=== PATIENT | female | born 1965 | race Two or more races ===

== ENCOUNTER 2024-06-17 04:10 | Day surgery (SDC) | payer OTHER ==
[2024-06-17] MEDS ORDERED: oxyCODONE HCL 5 MG TABLET PO PRN ×4 (12:15→12:41)
[2024-06-17] MEDS ORDERED: ONDANSETRON 4 MG/2 ML VIAL IVPUSH PRN ×3 (12:15→12:41)
[2024-06-17] MEDS ORDERED: metroNIDAZOLE 0.75% VAGINAL GEL 70 GM TUBE ONE (12:26)
[2024-06-17] MEDS ORDERED: MIDAZOLAM HCL 2 MG/2 ML SINGLE DOSE VIAL ONE (12:28)
[2024-06-17] MEDS ORDERED: ePHEDrine SULFATE 50 MG/1 ML AMPULE ONE (12:28)
[2024-06-17] MEDS ORDERED: PROPOFOL 20 ML ONE (12:28)
[2024-06-17] MEDS ORDERED: SUGAMMADEX SODIUM 200 MG/2 ML VIAL ONE (12:28)
[2024-06-17] MEDS ORDERED: ROCURONIUM BROMIDE 50 MG/5 ML SYRINGE ONE (12:28)
[2024-06-17] MEDS ORDERED: HYDROmorphone HCl 2 MG/ML VIAL ONE (12:28)
[2024-06-17] MEDS ORDERED: LIDOCAINE HCL 2% 100 MG/5 ML DISP.SYRIN ONE (12:32)
[2024-06-17] MEDS ORDERED: DEXAMETHASONE SOD PHOSPHATE 4 MG/1 ML VIAL ONE (12:32)
[2024-06-17] MEDS ORDERED: ceFAZolin SODIUM 1 GM VIAL ONE (12:32)
[2024-06-17] MEDS ORDERED: SEVOFLURANE 250 ML BTL ONE (12:33)
[2024-06-17] MEDS ORDERED: BISACODYL 5 MG TABLET.DR (FP) PO PRN (12:41)
[2024-06-17] MEDS ORDERED: KETOROLAC TROMETHAMINE 30 MG/1 ML VIAL IVPUSH PRN (12:41)
[2024-06-17] MEDS ORDERED: SIMETHICONE 80 MG TAB.CHEW (FP) PO PRN (12:41)
[2024-06-17] MEDS ORDERED: ACETAMINOPHEN 1000 MG/100 ML BAG IVPB PRN (12:41)
[2024-06-17] MEDS ORDERED: TIRZEPATIDE 5 MG/0.5 ML SQ SCH (12:45)
[2024-06-17] MEDS ORDERED: [UNRECOGNIZED DRUG - OTHER] SQ SCH (12:45)
[2024-06-17] MEDS: ceFAZolin SODIUM 1 GM VIAL IVPB ONE (12:59)
[2024-06-17] MEDS ORDERED: TRANEXAMIC ACID 1000 MG/10 ML VIAL ONE (13:00)
[2024-06-17] MEDS: SODIUM CHLORIDE 1,000 ML IV SCH (16:41)
[2024-06-17] MEDS ORDERED: CEFAZOLIN 1 GM/D5W 1 GM/50 ML BAG IVPB SCH (18:00)
[2024-06-17] MEDS: DOCUSATE SODIUM 100 MG CAPSULE (FP) PO PRN (19:57)
[2024-06-17] MEDS: IBUPROFEN 800 MG/8 ML IJ IVPB PRN (19:57)
[2024-06-17] MEDS: CEFAZOLIN 1 GM/D5W 1 GM/50 ML BAG IVPB SCH (21:50)
[2024-06-17] MEDS ORDERED: PATIENT'S OWN MEDICATION (NON-FORMULARY) (Metaxalone [Skelaxin] 800 MG Tablet) PO SCH (22:00)
[2024-06-17 22:37] VITALS: RESP 18
[2024-06-18] MEDS: LEVOTHYROXINE NA 25 MCG TABLET (FP) PO SCH (06:17)
[2024-06-18] MEDS: GLIMEPIRIDE 4 MG TABLET PO SCH (06:40)
[2024-06-18 09:16] LABS: HEMATOCRIT 30.6 % (32.4-45.2); HEMOGLOBIN 9.8 GM/dL (10.7-15.3); MCH 26.7 pg (25.7-33.7); MCHC 32.1 g/dl (32.0-36.0); MEAN CELL VOLUME 83.2 fl (80-96); MEAN PLT VOLUME 10.1 fl (7.5-11.1); PLATELET COUNT 246 10^3/uL (134-434); RBC 3.68 M/mm3 (3.60-5.2); RDW 16.2 % (11.6-15.6); WHITE BLOOD COUNT 12.2 K/mm3 (4.0-10.0)
[2024-06-18] MEDS: LORATADINE 10 MG TABLET PO SCH (09:25)
[2024-06-18] MEDS: MULTIVITAMINS (DAILY MVI) TABLET (FP) PO SCH (09:25)
[2024-06-18] MEDS: PANTOPRAZOLE 20 MG TABLET PO SCH (09:25)
[2024-06-18 09:37] VITALS: BP 98/52; PULSE 73; TEMP 98.2
[2024-06-18] MEDS ORDERED: PATIENT'S OWN MEDICATION (NON-FORMULARY) (Dapagliflozin Propanediol [Farxiga] 5 MG Tablet) PO SCH (10:00)
[2024-06-18] MEDS ORDERED: IBUPROFEN 600 MG TABLET (FP) PO PRN (12:41)
== END 2024-06-18 10:10 | disposition home or self-care (01) ==
LOC: JASUSAT 04:10 → J3W 18:10 → JASUSAT 06-18 10:10
PROVIDERS: ATTEND Obstetrics & Gynecology
PROC: 0UT97ZZ Resection of Uterus, Via Natural or Artificial Opening (ICD-10-PCS; 2024-06-17)
PROC: 0UT57ZZ Resection of Right Fallopian Tube, Via Natural or Artificial Opening (ICD-10-PCS; 2024-06-17)
PROC: 0JQC0ZZ Repair Pelvic Region Subcutaneous Tissue and Fascia, Open Approach (ICD-10-PCS; principal; 2024-06-17 11:00)
DX: N81.4 Uterovaginal prolapse, unspecified (principal); D25.0 Submucous leiomyoma of uterus; N72 Inflammatory disease of cervix uteri; N83.8 Other noninflammatory disorders of ovary, fallopian tube and broad ligament
CPT/HCPCS: 36415; 82962; 85027; 86922; 88302-TC; 88305-TC; 94760